=== PATIENT | male | born 1960 | race Caucasian/White ===

== ENCOUNTER 2021-11-01 08:52 | Outpatient (CLI) | payer MEDICAID, SELFPAY ==
[2021-11-01] VITALS (19 sets, daily range): BP systolic 123–168; BP diastolic 61–86; PULSE 50–74; RESP 18; TEMP 36.7; O2SAT 97; BMI 25.7
[2021-11-01 09:18] LABS: Microscopic, Urine URINE MICROSCOPIC (MICROSCOPIC)
[2021-11-01 09:20] LABS: Appearance,Urine CLEAR (Clear); Bilirubin,Urine Negative (Negative); Blood, Urine Negative (Negative); Color,Urine YELLOW (Yellow); Glucose,Urine (UA) 1+ (Negative); Ketones,Urine Negative (Negative); Leukocyte Esterase,Urine Negative (Negative); Nitrate,Urine Negative (Negative); PH,Urine 5.5 (5.0-8.5); Protein,Urine Negative (Negative); Specific Gravity, Urine >= 1.030 (1.005-1.030)
[2021-11-01 09:24] LABS: Basophils % 0.3 % (0.1-2.0); Eosinophils # 0.1 K/mm3 (0.0-0.4); Eosinophils % 0.8 % (0.1-12.0); Hematocrit 35.1 % (42.0-52.0); Lymphocytes # 1.6 K/mm3 (0.7-4.5); Lymphocytes % 12.5 % (10-50); Mean Corpuscular HGB Conc 34.1 g/dL (31.8-35.4); Mean Corpuscular Hemoglobin 34.4 pg (27.0-31.2); Mean Corpuscular Volume 100.9 fl (80-94); Mean Platelet Volume 8.6 fl (7.4-10.4); Monocytes # 0.5 K/mm3 (0.1-1.0); Monocytes % 3.6 % (1.7-9.3); Neutrophils # 10.3 K/mm3 (1.8-7.8); Neutrophils % 82.8 % (37.0-80.0); Platelet Count 202 K/mm3 (142-424); Red Blood Count 3.47 M/mm3 (4.60-6.20); Red Cell Distribution Width 19.9 % (11.5-17.5); White Blood Count 12.5 K/mm3 (4.8-10.8)
[2021-11-01 09:29] LABS: Chloride 104 mmol/L (98-107)
[2021-11-01 09:30] LABS: Potassium 4.5 mmoL/L (3.5-5.1); Sodium 136 mmol/L (136-145)
[2021-11-01 09:32] LABS: Alanine Aminotransferase 31 U/L (12-78); Alkaline Phosphatase 119 U/L (38-126); Aspartate Amino Transferase 32 U/L (17-59); Bilirubin,Total 0.6 mg/dl (0.2-1.3); Blood Urea Nitrogen 16 mg/dl (9-20); Creatinine Clearance Estimated 91 mL/min (50-200); Estimated Glomerular Filt Rate 76 ml/min (>60); GFR (African American) 93 ML/MIN (>60)
[2021-11-01 09:33] LABS: Albumin/Globulin Ratio 1.5 (1.1-1.8); Anion Gap 10.5 mEq/L (5-15); Calcium 8.9 mg/dl (8.4-10.2); Carbon Dioxide 26 mmol/L (22.0-30.0); Globulin 2.6 g/dL (1.3-3.2); Glucose 213 mg/dl (74-100); Total Protein,Serum 6.6 g/dl (6.3-8.2)
[2021-11-01 09:36] LABS: Bacteria,Urine Trace /lpf; Squamous Epithelial Cell,Urine Occasional #/hpf (0-5); WBC,Urine Occasional #/hpf (0-3)
== END 2021-11-01 15:05 | disposition home or self-care (01) ==
LOC: INF 08:55
PROVIDERS: PCP Family Medicine; Visit Provider Internal Medicine Medical Oncology
DX: Z51.11 Encounter for antineoplastic chemotherapy (principal); C18.9 Malignant neoplasm of colon, unspecified
CPT/HCPCS: 80053; 81001; 85025; 96368; 96411; 96413; 96415; 96417; J0640; J2469; J9035; J9190; J9263

== ENCOUNTER → 2021-11-04 10:44 | Outpatient (CLI) | payer MEDICAID, SELFPAY ==
--- NOTE | 2021-11-08 11:01 | DIET.NUTRFU ---
Spoke to family, they are on vacation and doing okay providing contact information for any further follow-up needed
== END ==
PROVIDERS: PCP Family Medicine; Visit Provider Internal Medicine Medical Oncology
DX: Z51.11 Encounter for antineoplastic chemotherapy (principal); C18.9 Malignant neoplasm of colon, unspecified
CPT/HCPCS: 96372; 96374; J2505

== ENCOUNTER 2021-11-15 08:49 | Outpatient (CLI) | payer MEDICAID, SELFPAY ==
[2021-11-15] VITALS (12 sets, daily range): BP systolic 125–173; BP diastolic 67–73; PULSE 52–58; RESP 17–20; TEMP 35.9–36; O2SAT 98–100; BMI 25.7
[2021-11-15 09:15] LABS: Microscopic, Urine URINE MICROSCOPIC (MICROSCOPIC)
[2021-11-15 09:24] LABS: Appearance,Urine CLEAR (Clear); Bilirubin,Urine Negative (Negative); Blood, Urine Negative (Negative); Color,Urine YELLOW (Yellow); Glucose,Urine (UA) Negative (Negative); Ketones,Urine Negative (Negative); Leukocyte Esterase,Urine Negative (Negative); Nitrate,Urine Negative (Negative); PH,Urine 5.5 (5.0-8.5); Protein,Urine Negative (Negative); Specific Gravity, Urine >= 1.030 (1.005-1.030)
[2021-11-15 09:25] LABS: Basophils % 0.2 % (0.1-2.0); Eosinophils # 0.1 K/mm3 (0.0-0.4); Eosinophils % 0.5 % (0.1-12.0); Hematocrit 37.2 % (42.0-52.0); Hemoglobin 12.4 g/dL (14.1-18.0); Lymphocytes # 1.5 K/mm3 (0.7-4.5); Lymphocytes % 15.2 % (10-50); Mean Corpuscular HGB Conc 33.4 g/dL (31.8-35.4); Mean Corpuscular Hemoglobin 33.8 pg (27.0-31.2); Mean Corpuscular Volume 101.1 fl (80-94); Mean Platelet Volume 8.2 fl (7.4-10.4); Monocytes # 0.5 K/mm3 (0.1-1.0); Monocytes % 5.5 % (1.7-9.3); Neutrophils # 7.8 K/mm3 (1.8-7.8); Neutrophils % 78.7 % (37.0-80.0); Platelet Count 127 K/mm3 (142-424); Red Blood Count 3.68 M/mm3 (4.60-6.20); Red Cell Distribution Width 17.4 % (11.5-17.5); White Blood Count 9.9 K/mm3 (4.8-10.8)
[2021-11-15 09:28] LABS: Chloride 104 mmol/L (98-107)
[2021-11-15 09:29] LABS: Potassium 4.5 mmoL/L (3.5-5.1); Sodium 137 mmol/L (136-145)
[2021-11-15 09:31] LABS: Alanine Aminotransferase 32 U/L (12-78); Alkaline Phosphatase 127 U/L (38-126); Anion Gap 10.5 mEq/L (5-15); Aspartate Amino Transferase 40 U/L (17-59); Bilirubin,Total 0.5 mg/dl (0.2-1.3); Blood Urea Nitrogen 17 mg/dl (9-20); Carbon Dioxide 27 mmol/L (22.0-30.0); Creatinine Clearance Estimated 101 mL/min (50-200); Estimated Glomerular Filt Rate 86 ml/min (>60); GFR (African American) 105 ML/MIN (>60)
[2021-11-15 09:32] LABS: Albumin Level 4.3 g/dl (3.5-5.0); Albumin/Globulin Ratio 1.6 (1.1-1.8); Calcium 9.5 mg/dl (8.4-10.2); Globulin 2.7 g/dL (1.3-3.2); Glucose 195 mg/dl (74-100)
[2021-11-15 09:38] LABS: Bacteria,Urine Trace /lpf; Mucus,Urine Trace /lpf; Squamous Epithelial Cell,Urine Occasional #/hpf (0-5)
== END 2021-11-15 14:56 | disposition home or self-care (01) ==
LOC: INF 08:50
PROVIDERS: PCP Family Medicine; Visit Provider Internal Medicine Medical Oncology
DX: Z51.11 Encounter for antineoplastic chemotherapy (principal); C18.9 Malignant neoplasm of colon, unspecified
CPT/HCPCS: 80053; 81001; 85025; 96368; 96411; 96413; 96415; 96417; J0640; J2469; J9035; J9190; J9263

== ENCOUNTER 2021-11-18 10:21 | Outpatient (CLI) | payer MEDICAID, SELFPAY | END 2021-11-18 10:40 | disposition home or self-care (01) | LOC: INF 10:22 | PROVIDERS: PCP Family Medicine; Visit Provider Internal Medicine Medical Oncology | DX: Z51.11 Encounter for antineoplastic chemotherapy (principal); C18.9 Malignant neoplasm of colon, unspecified | CPT/HCPCS: 96372; 96374; J2505 ==

== ENCOUNTER 2021-11-23 10:16 | Outpatient (CLI) | payer MEDICAID, SELFPAY ==
[2021-11-23 10:22] VITALS: BMI 25.7
[2021-11-23 10:40] LABS: Basophils % 0.2 % (0.1-2.0); Eosinophils # 0.1 K/mm3 (0.0-0.4); Eosinophils % 0.5 % (0.1-12.0); Hemoglobin 11.6 g/dL (14.1-18.0); Lymphocytes # 1.5 K/mm3 (0.7-4.5); Lymphocytes % 13.4 % (10-50); Mean Corpuscular HGB Conc 35.2 g/dL (31.8-35.4); Mean Corpuscular Hemoglobin 35.1 pg (27.0-31.2); Mean Corpuscular Volume 99.7 fl (80-94); Mean Platelet Volume 9.9 fl (7.4-10.4); Monocytes # 0.5 K/mm3 (0.1-1.0); Monocytes % 4.4 % (1.7-9.3); Neutrophils # 9.3 K/mm3 (1.8-7.8); Neutrophils % 81.4 % (37.0-80.0); Platelet Count 83 K/mm3 (142-424); Red Blood Count 3.31 M/mm3 (4.60-6.20); Red Cell Distribution Width 16.2 % (11.5-17.5); White Blood Count 11.4 K/mm3 (4.8-10.8)
[2021-11-23 10:44] LABS: Chloride 104 mmol/L (98-107); Potassium 4.3 mmoL/L (3.5-5.1); Sodium 138 mmol/L (136-145)
[2021-11-23 10:47] LABS: Alanine Aminotransferase 35 U/L (12-78); Albumin Level 4.1 g/dl (3.5-5.0); Albumin/Globulin Ratio 1.6 (1.1-1.8); Alkaline Phosphatase 136 U/L (38-126); Anion Gap 11.3 mEq/L (5-15); Aspartate Amino Transferase 39 U/L (17-59); Bilirubin,Total 0.3 mg/dl (0.2-1.3); Blood Urea Nitrogen 15 mg/dl (9-20); Calcium 9.7 mg/dl (8.4-10.2); Carbon Dioxide 27 mmol/L (22.0-30.0); Creatinine Clearance Estimated 114 mL/min (50-200); Estimated Glomerular Filt Rate 99 ml/min (>60); GFR (African American) 120 ML/MIN (>60); Globulin 2.6 g/dL (1.3-3.2); Glucose 210 mg/dl (74-100); Total Protein,Serum 6.7 g/dl (6.3-8.2)
== END 2021-11-23 10:53 | disposition home or self-care (01) ==
LOC: INF 10:17
PROVIDERS: PCP Family Medicine; Visit Provider Internal Medicine Medical Oncology
DX: C18.9 Malignant neoplasm of colon, unspecified (principal); Z45.2 Encounter for adjustment and management of vascular access device
CPT/HCPCS: 36591; 80053; 85025; J1642

== ENCOUNTER 2021-11-29 08:43 | Outpatient (CLI) | payer MEDICAID, SELFPAY ==
[2021-11-29] VITALS (12 sets, daily range): BP systolic 143–181; BP diastolic 72–91; PULSE 57–78; RESP 18; TEMP 36.6; O2SAT 95; BMI 25.7
[2021-11-29 09:05] LABS: Basophils % 0.4 % (0.1-2.0); Eosinophils % 0.3 % (0.1-12.0); Hematocrit 37.2 % (42.0-52.0); Hemoglobin 12.6 g/dL (14.1-18.0); Lymphocytes # 0.9 K/mm3 (0.7-4.5); Lymphocytes % 9.6 % (10-50); Mean Corpuscular HGB Conc 33.9 g/dL (31.8-35.4); Mean Corpuscular Hemoglobin 36.9 pg (27.0-31.2); Mean Corpuscular Volume 108.7 fl (80-94); Mean Platelet Volume 9.8 fl (7.4-10.4); Monocytes # 0.6 K/mm3 (0.1-1.0); Monocytes % 5.9 % (1.7-9.3); Neutrophils # 8.2 K/mm3 (1.8-7.8); Neutrophils % 83.9 % (37.0-80.0); Platelet Count 101 K/mm3 (142-424); Red Blood Count 3.42 M/mm3 (4.60-6.20); Red Cell Distribution Width 17.2 % (11.5-17.5); White Blood Count 9.8 K/mm3 (4.8-10.8)
[2021-11-29 09:13] LABS: Alanine Aminotransferase 39 U/L (12-78); Albumin/Globulin Ratio 1.5 (1.1-1.8); Alkaline Phosphatase 126 U/L (38-126); Anion Gap 12.2 mEq/L (5-15); Aspartate Amino Transferase 38 U/L (17-59); Blood Urea Nitrogen 10 mg/dl (9-20); Calcium 9.2 mg/dl (8.4-10.2); Carbon Dioxide 28 mmol/L (22.0-30.0); Chloride 105 mmol/L (98-107); Creatinine Clearance Estimated 101 mL/min (50-200); Estimated Glomerular Filt Rate 86 ml/min (>60); GFR (African American) 105 ML/MIN (>60); Globulin 2.6 g/dL (1.3-3.2); Glucose 156 mg/dl (74-100); Potassium 4.2 mmoL/L (3.5-5.1); Sodium 141 mmol/L (136-145); Total Protein,Serum 6.6 g/dl (6.3-8.2)
[2021-11-29 09:18] LABS: Bilirubin,Total < 0.1 mg/dl (0.2-1.3)
[2021-11-29 09:39] LABS: Microscopic, Urine URINE MICROSCOPIC (MICROSCOPIC)
[2021-11-29 09:43] LABS: Appearance,Urine CLEAR (Clear); Bilirubin,Urine Negative (Negative); Blood, Urine Negative (Negative); Color,Urine YELLOW (Yellow); Glucose,Urine (UA) Negative (Negative); Ketones,Urine Negative (Negative); Leukocyte Esterase,Urine Negative (Negative); Nitrate,Urine Negative (Negative); PH,Urine 5.5 (5.0-8.5); Protein,Urine Negative (Negative); Specific Gravity, Urine >= 1.030 (1.005-1.030); Urobilinogen,Urine 0.2 EU/dl (0.2)
[2021-11-29 10:01] LABS: Squamous Epithelial Cell,Urine Occasional #/hpf (0-5)
== END 2021-11-29 14:50 | disposition home or self-care (01) ==
LOC: INF 08:45
PROVIDERS: PCP Family Medicine; Visit Provider Internal Medicine Medical Oncology
DX: Z51.11 Encounter for antineoplastic chemotherapy (principal); C18.9 Malignant neoplasm of colon, unspecified
CPT/HCPCS: 80053; 81001; 85025; 96368; 96411; 96413; 96415; 96417; J0640; J2469; J9035; J9190; J9263

== ENCOUNTER 2021-12-02 10:43 | Outpatient (CLI) | payer MEDICAID, SELFPAY | END 2021-12-02 11:00 | disposition home or self-care (01) | LOC: INF 10:44 | PROVIDERS: PCP Family Medicine; Visit Provider Internal Medicine Medical Oncology | DX: Z51.11 Encounter for antineoplastic chemotherapy (principal); C18.9 Malignant neoplasm of colon, unspecified | CPT/HCPCS: 96372; 96374; J2505 ==

== ENCOUNTER 2021-12-13 08:41 | Outpatient (CLI) | payer MEDICAID, SELFPAY ==
[2021-12-13] VITALS (12 sets, daily range): BP systolic 151–186; BP diastolic 75–95; PULSE 58–74; RESP 17–18; TEMP 35.7–36; O2SAT 99–100; BMI 25.7
[2021-12-13 09:23] LABS: Basophils % 0.2 % (0.1-2.0); Eosinophils # 0.1 K/mm3 (0.0-0.4); Eosinophils % 0.4 % (0.1-12.0); Hematocrit 37.9 % (42.0-52.0); Hemoglobin 12.9 g/dL (14.1-18.0); Lymphocytes # 1.8 K/mm3 (0.7-4.5); Lymphocytes % 13.5 % (10-50); Mean Corpuscular Hemoglobin 34.4 pg (27.0-31.2); Mean Corpuscular Volume 100.9 fl (80-94); Mean Platelet Volume 8.5 fl (7.4-10.4); Monocytes # 0.7 K/mm3 (0.1-1.0); Monocytes % 4.8 % (1.7-9.3); Neutrophils # 11.1 K/mm3 (1.8-7.8); Neutrophils % 81.1 % (37.0-80.0); Platelet Count 119 K/mm3 (142-424); Red Blood Count 3.75 M/mm3 (4.60-6.20); White Blood Count 13.7 K/mm3 (4.8-10.8)
[2021-12-13 09:37] LABS: Alanine Aminotransferase 39 U/L (12-78); Albumin/Globulin Ratio 1.4 (1.1-1.8); Alkaline Phosphatase 168 U/L (38-126); Anion Gap 7.8 mEq/L (5-15); Aspartate Amino Transferase 37 U/L (17-59); Blood Urea Nitrogen 10 mg/dl (9-20); Calcium 9.3 mg/dl (8.4-10.2); Carbon Dioxide 29 mmol/L (22.0-30.0); Chloride 109 mmol/L (98-107); Creatinine Clearance Estimated 114 mL/min (50-200); Estimated Glomerular Filt Rate 99 ml/min (>60); GFR (African American) 120 ML/MIN (>60); Globulin 2.8 g/dL (1.3-3.2); Glucose 113 mg/dl (74-100); Potassium 3.8 mmoL/L (3.5-5.1); Sodium 142 mmol/L (136-145); Total Protein,Serum 6.8 g/dl (6.3-8.2)
[2021-12-13 09:39] LABS: Bilirubin,Total < 0.1 mg/dl (0.2-1.3)
== END 2021-12-13 15:17 | disposition home or self-care (01) ==
LOC: INF 08:42
PROVIDERS: PCP Family Medicine; Visit Provider Internal Medicine Medical Oncology
DX: Z51.11 Encounter for antineoplastic chemotherapy (principal); C18.9 Malignant neoplasm of colon, unspecified
CPT/HCPCS: 80053; 85025; 96368; 96411; 96413; 96415; 96417; J0640; J2469; J9035; J9190; J9263

== ENCOUNTER 2021-12-16 10:54 | Outpatient (CLI) | payer MEDICAID, SELFPAY ==
[2021-12-16 11:03] VITALS: BMI 25.6
== END 2021-12-16 11:15 | disposition home or self-care (01) ==
PROVIDERS: PCP Family Medicine; Visit Provider Internal Medicine Medical Oncology
DX: Z51.11 Encounter for antineoplastic chemotherapy (principal); C18.9 Malignant neoplasm of colon, unspecified
CPT/HCPCS: 96372; J2505

== ENCOUNTER 2021-12-21 13:26 | Outpatient (CLI) | payer MEDICAID, SELFPAY ==
[2021-12-21 13:31] VITALS: BMI 25.2
[2021-12-21 13:57] LABS: Sodium 139 mmol/L (136-145)
[2021-12-21 13:58] LABS: Potassium 4.5 mmoL/L (3.5-5.1)
[2021-12-21 14:00] LABS: Albumin Level 4.4 g/dl (3.5-5.0); Albumin/Globulin Ratio 1.5 (1.1-1.8); Blood Urea Nitrogen 17 mg/dl (9-20); Creatinine Clearance Estimated 100 mL/min (50-200); Estimated Glomerular Filt Rate 86 ml/min (>60); GFR (African American) 105 ML/MIN (>60); Globulin 2.9 g/dL (1.3-3.2); Total Protein,Serum 7.3 g/dl (6.3-8.2)
[2021-12-21 14:01] LABS: Calcium 9.6 mg/dl (8.4-10.2); Glucose 180 mg/dl (74-100)
[2021-12-21 14:02] LABS: Alanine Aminotransferase 46 U/L (12-78); Alkaline Phosphatase 191 U/L (38-126); Aspartate Amino Transferase 47 U/L (17-59); Bilirubin,Total < 0.1 mg/dl (0.2-1.3); Carbon Dioxide 28 mmol/L (22.0-30.0)
[2021-12-21 14:03] LABS: Basophils # 0.1 K/mm3 (0-0.2); Basophils % 0.5 % (0.1-2.0); Eosinophils % 0.3 % (0.1-12.0); Hematocrit 38.1 % (42.0-52.0); Hemoglobin 12.3 g/dL (14.1-18.0); Lymphocytes # 1.9 K/mm3 (0.7-4.5); Lymphocytes % 11.4 % (10-50); Mean Corpuscular HGB Conc 32.4 g/dL (31.8-35.4); Mean Corpuscular Hemoglobin 35.3 pg (27.0-31.2); Mean Platelet Volume 10.7 fl (7.4-10.4); Monocytes # 0.8 K/mm3 (0.1-1.0); Monocytes % 5.1 % (1.7-9.3); Neutrophils # 13.4 K/mm3 (1.8-7.8); Neutrophils % 82.7 % (37.0-80.0); Platelet Count 95 K/mm3 (142-424); Red Cell Distribution Width 15.9 % (11.5-17.5); White Blood Count 16.2 K/mm3 (4.8-10.8)
[2021-12-21 14:09] LABS: MANUAL DIFFERENTIAL MANUAL DIFFERENTIAL (MANUAL DIFF)
[2021-12-21 14:54] LABS: Anion Gap 12.5 mEq/L (5-15); Chloride 103 mmol/L (98-107)
[2021-12-21 15:13] LABS: Lymphocytes % 10 % (10-50); Monocytes % 2 % (2-9); Neutrophils % 85 % (42-76); Platelet Estimate Moderate Decrease; Total Cells Counted 100
[2021-12-21 15:15] LABS: RBC Morphology Normal
== END 2021-12-21 13:45 | disposition home or self-care (01) ==
LOC: INF 13:27
PROVIDERS: PCP Family Medicine; Visit Provider Internal Medicine Medical Oncology
DX: C18.9 Malignant neoplasm of colon, unspecified (principal); Z45.2 Encounter for adjustment and management of vascular access device
CPT/HCPCS: 36591; 80053; 85007; 85025; J1642

== ENCOUNTER 2022-01-15 08:04 | Outpatient (CLI) | payer MEDICAID, SELFPAY ==
--- NOTE | 2022-01-15 08:08 | CT_ITS ---
FINAL REPORT CLINICAL HISTORY: COLON CANCER FINDINGS: CT OF THE ABDOMEN AND PELVIS WITH CONTRAST Axial CT images of the abdomen and pelvis were obtained after the administration of oral and iv contrast. Coronal reformatted images were also obtained and reviewed.This study was performed with techniques to keep radiation doses as low as reasonably achievable (ALARA). Individualized dose reduction techniques using automated exposure control or adjustment of mA and/or kV according to the patient's size were employed. Abdomen: The heart is normal in size. There are multiple low-attenuation masses in the liver. The largest is in the lateral liver dome measuring 13 mm. Some of the smaller lesions are too small to accurately characterize but they do not have the typical imaging characteristics of cysts or hemangiomas. Their appearance is worrisome for hepatic metastatic disease. The gallbladder is present. The spleen is unremarkable. No adrenal mass is present. The pancreas has an unremarkable appearance. The kidneys are normal, without evidence of mass or hydronephrosis. The aorta is normal in caliber. There is no free fluid or adenopathy. No mass or abnormal fluid collection is seen. Pelvis: The appendix is normal. There are small bilateral inguinal hernias containing fat. The urinary bladder is unremarkable. No inflammatory process is seen. There is no evidence of mass or adenopathy. There is no evidence of bowel obstruction. There are small sclerotic foci in the bony skeleton, some of these are likely bone islands. There is a 7 mm sclerotic focus in the medial left iliac bone of uncertain etiology. There is an 8 mm sclerotic focus in the left supra acetabular region of uncertain etiology. IMPRESSION: Multiple hepatic masses, not definitely cysts or hemangiomas, worrisome for hepatic metastatic disease. Good be further evaluated with a liver MRI or follow-up CT. Several nonspecific sclerotic foci in the left pelvis of uncertain significance recommend follow-up CT. Reviewed, Interpreted and Dictated by Yuan Gonsalves III, MD Transcribed by Jessica Soto Authenticated and [facility]
--- NOTE | 2022-01-15 08:08 | CT_ITS ---
FINAL REPORT CLINICAL HISTORY: COLON CANCER FINDINGS: CT CHEST W/CONTRAST Axial CT images of the chest were obtained with contrast. Coronal reformatted images were also obtained. This study was performed with techniques to keep radiation doses as low as reasonably achievable, (ALARA). Individualized dose reduction techniques using automated exposure control or adjustment of mA and/or KV according to the patient's size were employed. A right jugular port is present. There is mild diffuse esophageal wall thickening, nonspecific and favored to be inflammatory. There is no evidence of mediastinal or hilar mass or adenopathy. No axillary mass or adenopathy is identified. On lung window images, there is mild biapical scarring and mild bibasilar atelectasis. There is a nonspecific 2 mm nodule in the left lower lobe seen on axial image 47 and a 5 mm nodule in the lateral left lower lobe seen on image 55. There is a 3 mm lateral right lower lobe nodule seen on axial image 50 and a 2 mm right middle lobe nodule seen on image 43 There is a calcified granuloma in the right lung base. IMPRESSION: Several small nonspecific pulmonary nodules. Recommend follow-up chest CT in 6 months. Mild diffuse esophageal wall thickening, nonspecific and favored to be inflammatory. Could be further evaluated with upper endoscopy. Reviewed, Interpreted and Dictated by Yuan Gonsalves III, MD Transcribed by Jessica Soto Authenticated and [facility]
[2022-01-15 08:38] VITALS: BMI 25.7
[2022-01-15 09:10] LABS: Basophils # 0.1 K/mm3 (0-0.2); Basophils % 1.2 % (0.1-2.0); Eosinophils # 0.1 K/mm3 (0.0-0.4); Eosinophils % 1.3 % (0.1-12.0); Hemoglobin 13.2 g/dL (14.1-18.0); Lymphocytes # 1.3 K/mm3 (0.7-4.5); Lymphocytes % 17.3 % (10-50); Mean Corpuscular HGB Conc 32.2 g/dL (31.8-35.4); Mean Corpuscular Hemoglobin 35.4 pg (27.0-31.2); Mean Corpuscular Volume 110.2 fl (80-94); Mean Platelet Volume 8.6 fl (7.4-10.4); Monocytes # 0.6 K/mm3 (0.1-1.0); Monocytes % 8.1 % (1.7-9.3); Neutrophils # 5.6 K/mm3 (1.8-7.8); Neutrophils % 72.2 % (37.0-80.0); Platelet Count 144 K/mm3 (142-424); Red Blood Count 3.72 M/mm3 (4.60-6.20); Red Cell Distribution Width 14.5 % (11.5-17.5); White Blood Count 7.8 K/mm3 (4.8-10.8)
[2022-01-15 09:12] LABS: Alanine Aminotransferase 25 U/L (12-78); Albumin/Globulin Ratio 1.4 (1.1-1.8); Alkaline Phosphatase 109 U/L (38-126); Anion Gap 10.1 mEq/L (5-15); Aspartate Amino Transferase 31 U/L (17-59); Blood Urea Nitrogen 19 mg/dl (9-20); Calcium 9.2 mg/dl (8.4-10.2); Carbon Dioxide 30 mmol/L (22.0-30.0); Chloride 104 mmol/L (98-107); Creatinine Clearance Estimated 114 mL/min (50-200); Estimated Glomerular Filt Rate 99 ml/min (>60); GFR (African American) 120 ML/MIN (>60); Globulin 2.9 g/dL (1.3-3.2); Glucose 105 mg/dl (74-100); Potassium 5.1 mmoL/L (3.5-5.1); Sodium 139 mmol/L (136-145); Total Protein,Serum 6.9 g/dl (6.3-8.2)
[2022-01-15 09:15] LABS: Bilirubin,Total < 0.1 mg/dl (0.2-1.3)
== END 2022-01-15 09:00 | disposition home or self-care (01) ==
LOC: RAD 08:05 → INF 08:33
PROVIDERS: PCP Family Medicine; Visit Provider Internal Medicine Medical Oncology
DX: C18.9 Malignant neoplasm of colon, unspecified (principal)
CPT/HCPCS: 36415; 71260; 74177; 80053; 85025; J1642; Q9967

== ENCOUNTER 2022-03-12 08:14 | Outpatient (CLI) | payer MEDICAID, SELFPAY ==
[2022-03-12 08:17] VITALS: BMI 25.0
--- NOTE | 2022-03-12 08:34 | CT_ITS ---
FINAL REPORT CLINICAL HISTORY: Colon cancer, follow-up COMPARISON: 01/15/2022 FINDINGS: Axial CT images of the chest were obtained with contrast. Coronal reformatted images were also obtained. This study was performed with techniques to keep radiation doses as low as reasonably achievable, (ALARA). Individualized dose reduction techniques using automated exposure control or adjustment of mA and/or KV according to the patient's size were employed. There is mild diffuse wall thickening of the thoracic esophagus. This is nonspecific and favored to be inflammatory. There is a stable 4.4 cm is sending aortic aneurysm. There is no evidence of mediastinal or hilar mass or adenopathy. No axillary mass or adenopathy is identified. There is mild bibasilar atelectasis. There are several new small nodules in the posterior right upper lobe measuring up to 5 mm with adjacent ground-glass opacity. These are favored to be inflammatory or neoplastic. There are several small, nonspecific, left lower lobe nodules including a lateral left lower lobe nodule measuring 5 mm. This is well seen on image 56 and is visually stable. Small right lower lobe nodules are stable. IMPRESSION: Small bilateral lower lobe pulmonary nodules, nonspecific, stable. New posterior right upper lobe nodules may be inflammatory or neoplastic. Three to six-month follow-up is recommended. Reviewed, Interpreted and Dictated by Yuan Gonsalves III, MD Transcribed by Jackeline Cifuentes Authenticated and [facility]
--- NOTE | 2022-03-12 08:34 | CT_ITS ---
FINAL REPORT TECHNIQUE: Axial CT images of the abdomen and pelvis were obtained before and after the administration of IV contrast. Oral contrast was administered.This study was performed with techniques to keep radiation doses as low as reasonably achievable (ALARA). Individualized dose reduction techniques using automated exposure control or adjustment of mA and/or kV according to the patient''s size were employed. CLINICAL HISTORY: COLON CANCER, FOLLOWUP COMPARISON: 01/15/2022 FINDINGS: ABDOMEN: Again noted are multiple low-attenuation masses in the liver consistent with hepatic metastatic disease. These are visually larger as compared to the prior exam. The mass in the lateral right hepatic lobe measures 14 mm and previously measured 9 mm. Other masses are visually slightly larger. The spleen is unremarkable. No adrenal masses present. The pancreas has an unremarkable appearance. The kidneys enhance normally. The aorta is normal in caliber. There is no free fluid or adenopathy. No mass or abnormal fluid collection is seen. PELVIS: The appendix is normal. The urinary bladder is unremarkable. No inflammatory process is seen. There is no evidence of bowel obstruction. There is a small umbilical hernia containing fat. There is also a small inguinal hernia containing fat. Several stable sclerotic foci again noted. A focus in the posterior right iliac bone is 7 mm and was 7 mm. These are nonspecific. IMPRESSION: Worsening hepatic metastatic disease. Reviewed, Interpreted and Dictated by Yuan Gonsalves III, MD Transcribed by Jackeline Cifuentes Authenticated and [facility]
[2022-03-12 08:40] LABS: Basophils # 0.1 K/mm3 (0-0.2); Basophils % 0.6 % (0.1-2.0); Eosinophils # 0.2 K/mm3 (0.0-0.4); Eosinophils % 2.2 % (0.1-12.0); Hematocrit 43.9 % (42.0-52.0); Hemoglobin 14.2 g/dL (14.1-18.0); Lymphocytes # 1.7 K/mm3 (0.7-4.5); Lymphocytes % 17.9 % (10-50); Mean Corpuscular HGB Conc 32.4 g/dL (31.8-35.4); Mean Corpuscular Hemoglobin 31.3 pg (27.0-31.2); Mean Corpuscular Volume 96.7 fl (80-94); Mean Platelet Volume 7.9 fl (7.4-10.4); Monocytes # 0.5 K/mm3 (0.1-1.0); Neutrophils # 6.9 K/mm3 (1.8-7.8); Neutrophils % 74.2 % (37.0-80.0); Platelet Count 196 K/mm3 (142-424); Red Blood Count 4.54 M/mm3 (4.60-6.20); Red Cell Distribution Width 13.5 % (11.5-17.5); White Blood Count 9.3 K/mm3 (4.8-10.8)
[2022-03-12 08:41] LABS: Chloride 102 mmol/L (98-107); Sodium 142 mmol/L (136-145)
[2022-03-12 08:42] LABS: Potassium 4.3 mmoL/L (3.5-5.1)
[2022-03-12 08:44] LABS: Alanine Aminotransferase 23 U/L (12-78); Albumin Level 4.4 g/dl (3.5-5.0); Albumin/Globulin Ratio 1.6 (1.1-1.8); Alkaline Phosphatase 93 U/L (38-126); Anion Gap 14.3 mEq/L (5-15); Aspartate Amino Transferase 31 U/L (17-59); Bilirubin,Total 0.2 mg/dl (0.2-1.3); Blood Urea Nitrogen 20 mg/dl (9-20); Carbon Dioxide 30 mmol/L (22.0-30.0); Creatinine Clearance Estimated 99 mL/min (50-200); Estimated Glomerular Filt Rate 86 ml/min (>60); GFR (African American) 105 ML/MIN (>60); Globulin 2.8 g/dL (1.3-3.2); Total Protein,Serum 7.2 g/dl (6.3-8.2)
[2022-03-12 08:45] LABS: Calcium 8.8 mg/dl (8.4-10.2); Glucose 97 mg/dl (74-100)
== END 2022-03-12 09:30 | disposition home or self-care (01) ==
LOC: RAD 08:14
PROVIDERS: PCP Nurse Practitioner Family; Visit Provider Internal Medicine Medical Oncology
DX: C18.9 Malignant neoplasm of colon, unspecified (principal)
CPT/HCPCS: 36591; 71260; 74177; 80053; 85025; J1642; Q9967

== ENCOUNTER 2022-06-19 07:47 | Outpatient (CLI) | payer MEDICAID, SELFPAY ==
[2022-06-19 08:13] VITALS: BMI 25.7
[2022-06-19 08:29] LABS: Basophils # 0.1 K/mm3 (0-0.2); Basophils % 1.2 % (0.1-2.0); Eosinophils # 0.8 K/mm3 (0.0-0.4); Eosinophils % 8.7 % (0.1-12.0); Hematocrit 40.6 % (42.0-52.0); Lymphocytes % 21.5 % (10-50); Mean Corpuscular Hemoglobin 28.7 pg (27.0-31.2); Mean Corpuscular Volume 89.7 fl (80-94); Mean Platelet Volume 7.9 fl (7.4-10.4); Monocytes # 0.5 K/mm3 (0.1-1.0); Monocytes % 5.1 % (1.7-9.3); Neutrophils # 5.8 K/mm3 (1.8-7.8); Neutrophils % 63.6 % (37.0-80.0); Platelet Count 228 K/mm3 (142-424); Red Blood Count 4.53 M/mm3 (4.60-6.20); Red Cell Distribution Width 13.7 % (11.5-17.5); White Blood Count 9.2 K/mm3 (4.8-10.8)
--- NOTE | 2022-06-19 08:34 | CT_ITS ---
FINAL REPORT TECHNIQUE: Axial CT images of the abdomen and pelvis were obtained before and after the administration of IV contrast. Oral contrast was administered.This study was performed with techniques to keep radiation doses as low as reasonably achievable (ALARA). Individualized dose reduction techniques using automated exposure control or adjustment of mA and/or kV according to the patient''s size were employed. CLINICAL HISTORY: COLON CANCER COMPARISON: 03/12/2022 FINDINGS: Abdomen: There are multiple masses throughout the liver consistent with widespread hepatic metastatic disease, markedly worse than prior. There is a mass in left liver dome measuring 65 x 58 mm, previously measured 24 x 16 mm. Other masses have slightly increased in size. Several new masses are identified. The spleen is unremarkable. No adrenal masses present. The pancreas has an unremarkable appearance. The kidneys enhance normally. The aorta is normal in caliber. There is no free fluid or adenopathy. Precontrast images demonstrate no evidence of nephrolithiasis. Pelvis: The appendix is normal. There is a moderate to large amount of retained stool throughout the colon. There are several small sclerotic foci which are stable and nonspecific. There are small bilateral inguinal hernias containing fat. The urinary bladder is unremarkable. No inflammatory process is seen. There is no evidence of mass or adenopathy. There is no evidence of bowel obstruction. IMPRESSION: Markedly worse hepatic metastatic disease. Reviewed, Interpreted and Dictated by Yuan Gonsalves III, MD Transcribed by Mira Cannon Authenticated and . [facility]
--- NOTE | 2022-06-19 08:34 | CT_ITS ---
FINAL REPORT TECHNIQUE: Axial images through the chest was performed with and without contrast by computed tomography. Sagittal and coronal reformatted images were obtained and reviewed. This study was performed with techniques to keep radiation doses as low as reasonably achievable (ALARA). Individualized dose reduction techniques using automated exposure control or adjustment of mA and/or kV according to the patient's size were employed. CLINICAL HISTORY: COLON CANCER COMPARISON: 03/12/2022 FINDINGS: There is dilation of the ascending aorta measuring 4.4 cm. There is diffuse mild thickening of the esophageal wall, favor inflammatory. There is no evidence of mediastinal or hilar adenopathy. No axillary adenopathy is identified. The heart is normal in size. There is no pleural or pericardial effusion. Right-sided chest port is identified. There is mild bibasilar atelectasis or scar. There are several, 5 mm or less pulmonary nodules which are stable and nonspecific. No new mass or nodule is identified. IMPRESSION: Stable pulmonary nodules which are nonspecific. No new mass or nodule. Reviewed, Interpreted and Dictated by Yuan Gonsalves III, MD Transcribed by Mira Cannon Authenticated and [facility]
[2022-06-19 08:35] LABS: Chloride 106 mmol/L (98-107); Potassium 4.5 mmoL/L (3.5-5.1); Sodium 142 mmol/L (136-145)
[2022-06-19 08:37] LABS: Blood Urea Nitrogen 18 mg/dl (9-20); Creatinine Clearance Estimated 100 mL/min (50-200); Estimated Glomerular Filt Rate 86 ml/min (>60); GFR (African American) 104 ML/MIN (>60)
[2022-06-19 08:38] LABS: Alanine Aminotransferase 33 U/L (12-78); Albumin Level 4.1 g/dl (3.5-5.0); Albumin/Globulin Ratio 1.3 (1.1-1.8); Alkaline Phosphatase 125 U/L (38-126); Anion Gap 10.5 mEq/L (5-15); Aspartate Amino Transferase 38 U/L (17-59); Bilirubin,Total 0.3 mg/dl (0.2-1.3); Calcium 8.8 mg/dl (8.4-10.2); Carbon Dioxide 30 mmol/L (22.0-30.0); Globulin 3.1 g/dL (1.3-3.2); Glucose 83 mg/dl (74-100); Total Protein,Serum 7.2 g/dl (6.3-8.2)
--- NOTE | 2022-06-19 09:16 | PC.NURSE ---
pt returned from CT scan and port was saline and heparin flushed and deaccessed. pt tolerated well.
[2022-06-20 11:58] LABS: CEA 16.7 ng/mL (0.0-4.7)
== END 2022-06-19 09:18 | disposition home or self-care (01) ==
LOC: RAD 07:48
PROVIDERS: PCP Nurse Practitioner Family; Visit Provider Internal Medicine Medical Oncology
DX: C18.9 Malignant neoplasm of colon, unspecified (principal)
CPT/HCPCS: 36591; 71270; 74178; 80053; 82378; 85025; J1642; Q9967